=== PATIENT | female | born 1970 | race Two or more races ===

== ENCOUNTER 2016-08-22 06:53 | Day surgery (SDC) | payer OTHER ==
--- NOTE | 2016-08-21 16:45 | HP ---
UMANG BIANCHI [id number] DATE OF : 1970 HISTORY OF PRESENT ILLNESS: This is a 47-year-old female with a history of heavy vaginal bleeding, passage of clots and associated anemia for about eight months. She has periods that last one to three weeks and associated dizziness with anemia. She has had a history of blood transfusion and has been using Nexplanon in the past, without a change in the bleeding. She underwent an endometrial biopsy in June and pathology showed a benign endometrium with polyp. She is now admitted for a D&C, hysteroscopy and endometrial ablation for failure of conservative surgery to relieve abnormal uterine bleeding. IUD was also discussed and declined by the patient. The risks, reasons, complications, living will and alternatives were discussed, all in layperson's terms, and all questions were answered. Sterility was discussed and failure rate quoted as 20% over five years was discussed with and patient. OB HISTORY: She is G-4, P-4, 0-0-4. Four vaginal deliveries. 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 STDs negative. She has had Nexplanon in the past. Pap test performed in May was normal per patient. Mammogram two years ago was normal. PAST MEDICAL HISTORY: Positive for: 1. Diabetes. 2. Hypertension. 3. Elevated cholesterol. ALLERGIES: Negative. MEDICATIONS: Include: 1. Citalopram. 2. Ferrous sulfate. 3. Glipizide. 4. Hydroxyzine. 5. Lisinopril. PAST SURGICAL HISTORY: Negative. SOCIAL HISTORY: Nonsmoker and nondrinker. FAMILY HISTORY: Negative. REVIEW OF SYSTEMS: As above. PHYSICAL EXAMINATION: GENERAL: A healthy female in no acute distress. HEENT: Normal. NECK: Supple. Thyroid not palpable. BREASTS: Soft. No masses. Nontender. ABDOMEN: Benign. PELVIC: External genitalia healthy. Vagina healthy. No bleeding was noted on last exam. Cervix pink and nontender. Uterus eight weeks, anteverted and nontender. The adnexa were negative. IMAGING: Ultrasound done at the end of June showed the uterus measuring 11.6 x 5.8 x 6.7 cm, with multiple fibroids noted, the largest being 3.4 x 2.1 x 3 cm. The ovaries appeared normal. IMPRESSION: 1. Abnormal uterine bleeding. 2. Fibroid uterus. PLAN: D&C, hysteroscopy and endometrial ablation.
[~2016-08-22 06:53] MED LIST: IV START KIT ONE; LACTATED RINGERS 0 ML ONE
[2016-08-22] MEDS ORDERED: SODIUM CHLORIDE 0.9% 1,000 ML ONE (07:31)
[2016-08-22] MEDS ORDERED: LIDOCAINE 2% (PRES FREE) 5 ML VIAL ONE (07:41)
[2016-08-22] MEDS ORDERED: MIDAZOLAM HCL 1 MG/ML 2ML VIAL ONE (07:41)
[2016-08-22] MEDS ORDERED: FENTANYL 100 MCG/2 ML VIAL ONE (07:41)
[2016-08-22] MEDS ORDERED: PROPOFOL 20 ML IV ONE (07:41)
[2016-08-22] MEDS ORDERED: SUCCINYLCHOLINE CHL 20 MG/ML DOSE ONE (08:36)
[2016-08-22] MEDS ORDERED: KETOROLAC TROMETHAMINE 30 MG/ML 1 ML VIAL ONE (08:36)
[2016-08-22] MEDS ORDERED: ONDANSETRON 4 MG/2ML 2 ML VIAL ONE (08:36)
[2016-08-22] MEDS ORDERED: PROMETHAZINE HCL 25 MG/ML VIAL IM PRN (08:44)
[2016-08-22] MEDS ORDERED: FENTANYL 100 MCG/2 ML VIAL IV PRN (08:44)
[2016-08-22] MEDS ORDERED: HYDROMORPHONE HCL 1 MG/ML SYRINGE IV PRN (08:44)
[2016-08-22] MEDS ORDERED: ATROPINE SULFATE 0.4 MG/1 ML VIAL IV PRN (08:44)
[2016-08-22] MEDS ORDERED: MEPERIDINE 25 MG/ML SYRINGE IV PRN (08:44)
[2016-08-22] MEDS ORDERED: ONDANSETRON 4 MG/2ML 2 ML VIAL IV PRN (08:44)
[2016-08-22] MEDS ORDERED: NALOXONE HCL 0.4 MG/ML VIAL IV PRN (08:44)
[2016-08-22] MEDS ORDERED: LACTATED RINGERS 1,000 ML IV SCH ×2 (08:45→15:15)
--- NOTE | 2016-08-22 09:06 | PCMBPN ---
Brief Post Op Note: Date of Procedure: 08/22/16 Start Time: Preoperative Diagnosis: 1. abnormal uterine bleeding, leiomyoma uterii Postoperative Diagnosis: 1. Same Procedure: dilatation and curettage, hysteroscopy, endometrial ablation Surgeon: Carlos Ashford Assist: Anesthesia: ms bello, general Findings: external genitalia healthy, cervix patulous, uterus 6 weeks and anteverted, adnexa negative, vagina healthy, sounded to 9.5cm, hysteroscopy normal findings, cervical length 3cm, cavity length 6.5cm, cavity width 4.5cm, power 161, time 53 seconds, 35 cc normal saline deficit Condition: stable Complications: none IV Fluids: mLs of LR Urine Output: 200 mLs Estimated Blood Loss: 5 mLs Tourniquet Time: N/A Specimens: endocervical and endometrial curettings Implants: Drains: N/A patient tolerated procedure well and was returned to recovery room in stable condition.
[2016-08-22] MEDS ORDERED: OXYCODONE HCL 5 MG TABLET PO PRN (09:07)
[2016-08-22] MEDS ORDERED: OXYCODONE/ACETAMINOPHEN 5/325 MG TABLET PO PRN (09:07)
[2016-08-22] MEDS ORDERED: IBUPROFEN 800 MG TABLET PO PRN (09:07)
--- NOTE | 2016-08-22 09:40 | OP ---
Rhea Sun : 1970 [id number] NAME OF OPERATION: Dilation and curettage, hysteroscopy, and endometrial ablation with NovaSure. PREOPERATIVE DIAGNOSES: Leiomyoma uteri and abnormal uterine bleeding. POSTOPERATIVE DIAGNOSES: Leiomyoma uteri and abnormal uterine bleeding. SAWYER HELPER: Dr. Carlos Ashford. ANESTHESIA: Ms. Mccormack, General. DESCRIPTION OF PROCEDURE: Dictation begins with the patient under general anesthesia. She was placed in the lithotomy position. The local area was prepared with Betadine and draped in the usual manner. The bladder was emptied of about 200 mL of clear yellow urine by straight catheterization. After a timeout was performed, exam under anesthesia revealed the external genitalia healthy, vagina healthy, cervix was patulous and pink, uterus 6 weeks size and anteverted, adnexa negative. A duckbill speculum was inserted into the vagina gently. The anterior lip of the cervix grasped with a single prong tenaculum. Curettage from the endocervical canal produced scanty amounts of mucus and blood. Next, the uterus was sounded to 9.5 cm. The cervical length was 3 cm. The cavity length 6.5 cm. Curettage from the endometrial cavity produced around 2 mL of curettings. Next, hysteroscopic exam was performed using normal saline and findings were normal. Deficit of the saline was 35 mL. Finally, the endometrial ablation was performed with NovaSure. The cervical length was 3 cm. The cavity length 6.5 cm. The cavity width 4.5 cm. The NovaSure instrument was inserted uneventfully and the ablation was performed with a time of 53 seconds and a power of 161. Prior to the onset of the ablation the NovaSure instrument was opened and turned left and then turned right in the cavity and then front and back. Again, the NovaSure ablation was performed uneventfully. The instrument was then removed and at this point the operation was terminated. The single prong tenaculum was removed. There was complete hemostasis and the duckbill speculum was removed with sponge and instrument count reported as correct, and complete hemostasis the operation was terminated. Estimated blood loss was 5 mL. JOB: [id number]
--- NOTE | 2016-08-22 09:44 | DS ---
Rhea Sims Moon [id number] A 46-year-old female admitted with abnormal uterine bleeding and leiomyoma uteri. She underwent a dilation and curettage, hysteroscopy, and endometrial ablation and tolerated the procedure well. She was sent home in good condition on Percocet and Motrin as needed and instructions were given to the patient prior to the onset of surgery. She was advised office visit in one weeks time. Pathology is pending at the time of this dictation. FINAL DIAGNOSIS: As above pending pathology. JOB: [id number]
[2016-08-22] MEDS ORDERED: HYDROMORPHONE HCL 1 MG/ML SYRINGE ONE (09:50)
[2016-08-22] MEDS ORDERED: IBUPROFEN 800 MG TABLET ONE (11:22)
[2016-08-22] MEDS ORDERED: LIDOCAINE 1% 2 ML VIAL ID PRN (15:07)
== END 2016-08-22 13:40 | disposition home or self-care (01) ==
LOC: SDC 06:53
PROVIDERS: ATTEND Obstetrics & Gynecology
PROC: 0UDB8ZX Extraction of Endometrium, Via Natural or Artificial Opening Endoscopic, Diagnostic (ICD-10-PCS; principal; 2016-08-22)
PROC: 0UDB7ZX Extraction of Endometrium, Via Natural or Artificial Opening, Diagnostic (ICD-10-PCS; 2016-08-22)
DX: D25.9 Leiomyoma of uterus, unspecified (principal); E11.9 Type 2 diabetes mellitus without complications; I10 Essential (primary) hypertension; E78.00 Pure hypercholesterolemia, unspecified; Z79.84 Long term (current) use of oral hypoglycemic drugs
CPT/HCPCS: 58563; J1170; J3010 ×2; A9270 ×2; J1885; J2250; J2405; J7030